=== PATIENT | female | born 1965 | race African-American/Black ===

== ENCOUNTER 2018-10-03 00:23 | Day surgery (SDC) | payer MEDICARE ==
[~2018-10-03] VITALS: Ht 172.7 cm; Wt 88.0 kg
[~2018-10-03 00:23] MED LIST: ALBU8.5H12 IH; ALPR-429 PO; BUDE10.25 IH; LORA-629 PO; MAGN400C PO; OXYC-373 PO; TURM1POW2 MC; ZOLP-350 PO; [UNRECOGNIZED DRUG - CODE] PO
[2018-10-03] MEDS ORDERED: PROPOFOL EMUL(*) 10MG/ML 20 ML 40 ML ONE (08:20)
[2018-10-03] MEDS ORDERED: LIDOCAINE MPF 1% 5 ML VIAL ONE (08:20)
[2018-10-03] MEDS ORDERED: LIDOCAINE/SOD BICARB 8.4% SYR ID ONE (10:55)
[2018-10-03] MEDS ORDERED: NORMOSOL R SOLN(*) 1000 ML BAG 1,000 ML IV PRN (10:55)
[2018-10-03 11:04] VITALS: BP 153/103
[2018-10-03] MEDS ORDERED: PROPOFOL EMUL(*) 10MG/ML 20 ML 20 ML ONE ×3 (12:36→13:07)
[2018-10-03] MEDS ORDERED: LABETALOL HCL 25 MG/5 ML SYRINGE ONE (12:57)
[2018-10-03 13:27] VITALS: BP 135/79
[2018-10-03 13:45] VITALS: BP 146/99
[2018-10-03 14:01] VITALS: BP 131/79
[2018-10-03 14:07] VITALS: BP 134/96
== END 2018-10-03 14:30 | disposition home or self-care (01) ==
LOC: OR 00:23
PROVIDERS: ATTEND Family Medicine
DX: Z12.11 Encounter for screening for malignant neoplasm of colon (principal); K63.5 Polyp of colon; K62.1 Rectal polyp
CPT/HCPCS: 00812; 45380; J2001; J2704; 88305

== ENCOUNTER → 2018-12-23 | Outpatient (CLI) | payer MEDICARE ==
[2018-12-23 15:49] LABS: PLATELET COUNT, AUTOMATED 417 K/uL (150-450)
== END ==
LOC: LAB 15:30
PROVIDERS: ATTEND Nurse Practitioner Primary Care
DX: R10.9 Unspecified abdominal pain (principal)
CPT/HCPCS: 36415; 82040; 82150; 82247; 82310; 82374; 82435; 82565; 82947; 83516; 83690; 84075; 84132; 84155; 84295; 84450; 84460; 84520; 85025; 85651; 86140

== ENCOUNTER → 2018-12-31 | Outpatient (CLI) | payer MEDICARE ==
[~2018-12-31] MED LIST changes: +OMEP40CA48 PO
--- NOTE | 2018-12-31 09:09 | RADIOLOGY IMAGING REPORT ---
FACILITY: [facility] [place] PATIENT NAME: Siobhan Walls : 1965 MR: [id number] V: [id number] EXAM DATE: ORDERING PHYSICIAN: KAITLYNN NICHOLE TECHNOLOGIST: Location[place] [facility] [place] Patient: Siobhan Walls : 1965 Visit/Account:[id number] Date of Sevice: 12/31/2018 GALLBLADDER HISTORY: Abdomen pain COMPARISON: None. FINDINGS: Gallbladder: Unremarkable; no stones or sludge. Liver: There is mild increased echogenicity throughout liver which can be seen with fatty infiltratio n or other infiltrative process Common duct: Mildly prominent, 7.9 mm diameter.. At the head the pancreas however common bile duct m easured 4.6 mm. There is no evidence of intrahepatic biliary ductal dilatation Pancreas: Partially obscured by bowel, visualized aspects unremarkable. Right kidney: Negative. Upper abdominal aorta and IVC: Patent. Ascites: None visualized. IMPRESSION: Mild increased echogenicity throughout the liver which can be seen with fatty infiltration or other i nfiltrative process Common bile duct is mildly prominent at 7.9 mm although measures 4.6 cm at the head of the pancreas a nd there is no evidence of intrahepatic biliary ductal dilatation. No demonstration of gallstones gallbladder sludge gallbladder wall thickening or positive Robins sign Report Dictated By: Fariha Aguilar MD at 12/31/2018 8:51 AM Report E-Signed By: Fariha Aguilar MD at 12/31/2018 9:02 AM WSN:[email or web address]
== END ==
LOC: US 00:47
PROVIDERS: ATTEND Nurse Practitioner Primary Care
DX: R10.9 Unspecified abdominal pain (principal)
CPT/HCPCS: 76705; 82274; 83630; 87045; 87338

== ENCOUNTER → 2019-01-01 | Outpatient (CLI) | payer MEDICARE | LOC: LAB 15:54 | PROVIDERS: ATTEND Nurse Practitioner Primary Care | DX: R74.8 Abnormal levels of other serum enzymes (principal) | CPT/HCPCS: 36415; 82728; 83540; 83550; 86038; 86704; 86706; 86708; 86709; 87340; G0472; 86803 ==

== ENCOUNTER → 2019-01-09 | Outpatient (CLI) | payer MEDICARE ==
[~2019-01-09] MED LIST changes: +SINCALIDE 5 MCG VIAL INJ ONE; +WATER FOR INJ,STERILE 20 ML 20 ML ONE
--- NOTE | 2019-01-09 14:23 | RADIOLOGY IMAGING REPORT ---
[place] [facility] [place] Siobhan Walls : 1965 MR: [id number] V: [id number] EXAM DATE: ORDERING PHYSICIAN: KAITLYNN NICHOLE TECHNOLOGIST: Location: [facility] [place] Patient: Siobhan Walls : 1965 Visit/Account:[id number] Date of Sevice: 01/09/2019 NM HIDA SCAN Right upper quadrant pain TECHNIQUE: 5.7 mCi Tc99m Choletec was injected intravenously. Multiple sequential gamma camera image s of the abdomen were obtained for 20 minutes. At that time, Kinevac was injected intravenously and a n additional 30 minutes of gamma camera imaging data was acquired. A computer-generated region of in terest was placed around the gallbladder and time-activity curve for the gallbladder was derived. The gallbladder ejection fraction was calculated. COMPARISON: None FINDINGS: Liver uptake and excretion: Normal Time to appearance: Bile ducts: Six minutes. Gallbladder: Eight minutes. Duodenum: 13 minutes. Duodenal- gastric reflux / extravasation: None Post IV Kinevac: 3.4mcg. Patient symptoms: Nausea and hot flash with Kinevac Ejection fraction = 16 %, (normal range > 35%). IMPRESSION: Hepatobiliary scan demonstrating biliary dyskinesis with a diminished ejection fraction of 16%. Report Dictated By: Percy Blackwell MD at 01/09/2019 2:09 PM Report E-Signed By: Percy Blackwell MD at 01/09/2019 2:17 PM WSN:[email or web address]
== END ==
LOC: NUC 01:26
PROVIDERS: ATTEND Nurse Practitioner Primary Care
DX: R10.11 Right upper quadrant pain (principal)
CPT/HCPCS: 78226; A9537; J2805